=== PATIENT | female | born 1945 | race Caucasian/White ===

== ENCOUNTER 2018-01-03 01:01 | Outpatient (CLI) | payer OTHER, SELFPAY ==
--- NOTE | 2018-01-03 12:54 | DI.RAD_ITS ---
SYMPTOM/DIAGNOSIS: FELL, PAIN, M25.522 LEFT ELBOW: There is a fracture of the olecranon with significant separation extending to the articular surface. There is adjacent posterior soft tissue swelling. The distal humerus and proximal radius appear intact. A joint effusion is seen. IMPRESSION: Olecranon fracture.
== END 2018-01-03 01:21 ==
PROVIDERS: PCP Family Medicine; Visit Provider Family Medicine
DX: M25.522 Pain in left elbow (principal); S52.021A Displaced fracture of olecranon process without intraarticular extension of right ulna, initial encounter for closed fracture; M25.422 Effusion, left elbow; W19.XXXA Unspecified fall, initial encounter
CPT/HCPCS: 73080

== ENCOUNTER → 2018-01-09 10:32 | Outpatient (BNVA) | payer OTHER, SELFPAY | PROVIDERS: PCP Family Medicine; Referring Provider Family Medicine; Visit Provider Orthopaedic Surgery | DX: S52.022A Displaced fracture of olecranon process without intraarticular extension of left ulna, initial encounter for closed fracture (principal); W01.0XXA Fall on same level from slipping, tripping and stumbling without subsequent striking against object, initial encounter | CPT/HCPCS: 99214 ==

== ENCOUNTER 2018-01-12 06:33 | Day surgery (SDC) | payer OTHER, SELFPAY ==
[2018-01-12] MEDS: Bupivacaine LIPOSOME/PF 133 MG/10 ML VIAL IJ (06:45)
[2018-01-12 06:50] VITALS: BP 118/74; PULSE 52; RESP 16; TEMP 36.8; O2SAT 100
[2018-01-12] MEDS: Lactated Ringers 1,000 ML 80 ML IV (07:02)
--- NOTE | 2018-01-12 07:10 | DI.RAD_ITS ---
SYMPTOMS/DIAGNOSIS: DISPLACED OLECRANON FX, LEFT LEFT ELBOW IN THE OR: Fluoroscopy Time: 0.43 sec, 0.4 mGy Fluoroscopy was utilized by Dr. Moreno during the reduction and internal fixation of the olecranon fracture. Alignment appears anatomic. Please refer to the procedure report for complete details.
--- NOTE | 2018-01-12 09:52 | W.PM.DSUDISC ---
Discharge Plan Disposition Patient Disposition: HOME Condition: Good Discharge Details Reason For Visit: ORIF of FX L OLECRANON Attending Provider: Moris Moreno Primary Care Provider: Haydee Olvera Home Meds and New Rx's Prescriptions: New hydrocodone-acetaminophen 5-325 mg tablet 1 tab PO Q6H PRN (Reason: pain) Qty: 14 RF: 0 Continue calcium carb-D3-mag [id number] [id number] ix-uyfu-tn-mg tablet 1 tab PO BID RF: 0 cholecalciferol (vitamin D3) 1,000 unit capsule 1,000 unit PO DAILY RF: 0 ibuprofen [Ibuprofen IB] 200 MG tablet 400 - 600 mg PO PRN RF: 0 Restore Eye Vit 1 tab PO DAILY PRNRF: 0 albuterol sulfate [ProAir HFA] 8.5 GM HFA aerosol inhaler 1 - 2 puff Inhalation Q6H PRN Qty: 1 RF: 12 acyclovir 15 GM ointment 1 gm Topical TID PRNQty: 1 RF: 12 acyclovir 800 mg tablet 800 mg PO 5 times daily PRN (Reason: herpes) Qty: 35 RF: 3 Discharge Instructions Additional Instructions: Sling for comfort. May leave R arm out of sling as much as your discomfort allows. Keep splint and dressings dry and intact until return. Return to 's office on 01/25/18 for follow up. Take ibuprofen 600 mg 3 times/day for next 2 weeks to decrease inflammation and swelling. Take the hydrocodone for breakthrough pain, every 6 hours, if needed. Use your L hand as much as discomfort allows. Cover splint with plastic bag sealed with large rubber band around upper arm to shower. Referrals: Moris Moreno MD [ [facility] STAFF PHYSICIAN] - (f/u on 01/25/18) Equipment/Supplies: Splint Activity:: Activity as Tolerated Remove Dressings/Wound Care:: Do Not Remove Shower/Bathe:: Cover Diet:: As Tolerated Discharge Orders Discharge Orders: Discharge Order (Routine); Ordered 01/12/18 Ordered By: Moris Moreno DS: Diagnosis Discharge Diagnosis (1) Fracture of left olecranon process: Status: Acute
[2018-01-12 10:40] VITALS: BP 113/72; PULSE 56; RESP 16; TEMP 36.6
--- NOTE | 2018-01-12 10:47 | DI.RAD_ITS ---
SYMPTOM/DIAGNOSIS: CHECK REDUCTION FOLLOWING ORIF FX OLECRANON LEFT ELBOW: Four views. The patient is now status post reduction and internal fixation of the left olecranon fracture. The orthopedic hardware appears in good position. The fractures appear anatomic in alignment. The patient's elbow is in a cast.
--- NOTE | 2018-01-12 17:01 | ROE_ITS ---
DATE OF PROCEDURE: January 12, 2018 PREOPERATIVE DIAGNOSIS: Displaced fracture left olecranon process. POSTOPERATIVE DIAGNOSIS: Same. PROCEDURE: Open reduction and internal fixation of displaced fracture of left olecranon process taya infante a cehsoz-ab-yxukq tension band wiring technique. ANESTHESIA: General, Donna Lemon CRNA SURGEON: Moris Moreno M.D. DIGITAL MEDIA MANAGER: Krista Cruz INDICATIONS: This is a 72-year-old white female who slipped and fell on the ice, sustaining a displa joey fracture of her olecranon nineteen days ago. She was heading down to see relatives in [facility] and thought she had just sustained a contusion. So she did not seek any medical attention. When s he came back from [place] after the , she noted that although she could move her elbow fairly well, it was very painful and was weak when she uses it. She is a right-dominant in dividual, so this is her non-dominant extremity. She finally saw her PCP, who obtained x-rays of the elbow last week. The x-rays confirmed the displaced olecranon fracture. I saw the patient on for the first time. I recommended open reduction and internal fixation as the optimum treatment t o alleviate her pain and restore good function to her elbow. The risks and complications of the proc edure were explained to the patient in detail preoperatively. PROCEDURE: The patient was taken to the operating room on 01/12/18. A scalene block was administered to the left upper extremity. This was followed by IV sedation. I applied a proximal tourniquet to the left upper arm. I prepped the left upper extremity from fingers to tourniquet and draped it free in the usual sterile fashion. I then flexed her elbow over her chest on soft goods. I made a longitudinal incision beginning distally over the ulnar crest, curved and then carried proxi chet a distance of about six inches. The incision was curved around the point of the olecranon. Th e incision was carried down to the periosteum. Sharp dissection was used to make skin flaps and refl ect the olecranon bursa tissue medially. The fracture site was entered. I cleaned the fracture site of fracture hematoma using curettes and a small rongeur. I then irrigated the fracture site complet kate. I could see through the fracture the distal humerus articular surface. The articular surface w as undamaged. I then used a large reduction forceps to reduce the fracture. Two parallel 0.062 K-Wires were then p laced through the tip of the olecranon across the fracture and engaging the volar cortex of the ulna. I then made a transverse drill hole distal to the fracture through the crest of the ulna. I passed a 1.6 cable through the drill hole. I then made a jonbph-eu-ophuv and passed the cable deep to the triceps tendon insertion on the tip of the olecranon. The grommet was placed on the cable; the cable was maximally tightened using the cable beach expert and then the grommet was crimped using the crimper tool to secure the tightened cable. As the cable was tightened, the fracture line was seen to compr ess and in fact disappear so that there was an anatomic reduction. The long end of the cables was cu t with a cable cutter. The wound was irrigated with Betadine and saline solution. The wound margins were infiltrated with 0.5% Marcaine with an epinephrine solution. Muscle fascia wh ere the distal drill hole was made in the ulna was then closed over the wire with interrupted #1 Vicr yl suture. I then closed bursal tissue to cover most of the cable with interrupted #1 Vicryl suture material. The wires were bent, cut short and then using a tamp, were tamped through the triceps tend on and sutures were placed through the triceps tendon over the wire to prevent that from backing out. I then actively flexed and extended her elbow; there was no motion to the fracture site. She was a ble to extend her elbow fully and flex it fully passively. The skin edges were then approximated wit h skin gracie. The wound was dressed with Xeroform gauze, sterile gauze 4x4's, ABD pads and wrapped with a Kerlix bandage. She was then placed in a posterior fiberglass splint with the elbow flexed 9 0 degrees. The splint was applied with a 4-inch Dillan bandage. The splint did not extend to the wris t, so her wrist and hand were free to move. The tourniquet was released at this point; there was no breakthrough bleeding to the dressing. The p atient's sedation was reversed without complication. She was discharged to the Day Surgery Unit in g ood condition. A sling was applied to the left arm. She was advised that the sling was for comfort. She may leave her left arm out of the sling as much as discomfort allows. She is to keep the dressings and splint intact and dry until she follows up in my office in two weeks. She is to cover the splint with a karo stic bag sealed with a large rubber band around her upper arm to shower. She is instructed to take i buprofen 600 mg t.i.d. for two weeks to decrease inflammation and swelling. She is given a prescript ion for breakthrough pain of Hydrocodone with APAP 5/325 one tablet every six hours, as needed. She will follow-up in my office in two weeks.
== END 2018-01-12 11:55 | disposition home or self-care (01) ==
PROVIDERS: PCP Family Medicine; Visit Provider Orthopaedic Surgery
PROC: (CPT 24685; principal; 2018-01-12 08:00)
DX: S52.022A Displaced fracture of olecranon process without intraarticular extension of left ulna, initial encounter for closed fracture (principal); W00.0XXA Fall on same level due to ice and snow, initial encounter; G89.18 Other acute postprocedural pain
CPT/HCPCS: 24685; 76942; 73070; 73080; J0690; J1100; J1885; J2250; J2405; L3650

== ENCOUNTER 2018-01-23 01:21 | Outpatient (CLI) | payer OTHER, SELFPAY ==
--- NOTE | 2018-01-23 13:35 | DI.RAD_ITS ---
SYMPTOMS/DIAGNOSIS: FRACTURE, AGE-RELATED OSTEOPOROSIS WITHOUT CURRENT PATHOLOGICAL FRACTURE, M81.0 DEXA SCAN: The DEB image reveals no evidence of compression fracture. For the right forearm, a T score of -2.2 and a Z score of -0.1 are consistent with osteopenia and an increased fracture risk and represent a -3.6% interval decrease in mineralization when compared with the 01/06/2015 exam. For the left hip, a T score of -2.9 and a Z score of -1.4 are consistent with osteoporosis and a high fracture risk and represent a -5.2% interval decrease in mineralization when compared with the prior study of 01/06/2015. For the lumbar spine a T score of -3.0 and a Z score of -0.8 are consistent with osteoporosis and a high fracture risk. The values today would be consistent with an interval increase in mineralization of 10.0% when compared with the prior study of 01/06/2015.
== END 2018-01-23 01:41 ==
PROVIDERS: PCP Family Medicine; Visit Provider Family Medicine
DX: M81.0 Age-related osteoporosis without current pathological fracture (principal); M85.88 Other specified disorders of bone density and structure, other site
CPT/HCPCS: 77080

== ENCOUNTER 2018-01-25 10:15 | Outpatient (CLI) | payer OTHER, SELFPAY ==
--- NOTE | 2018-01-25 10:13 | DI.RAD_ITS ---
SYMPTOM/DIAGNOSIS: F/U ORIF LEFT ELBOW: When compared with the postoperative study of 01/12 there has been no interval change in the position of the olecranon fracture or pin and cerclage wires affixed to the fracture site. No interval change when compared with the prior exam.
== END 2018-01-25 10:35 ==
PROVIDERS: PCP Family Medicine; Visit Provider Orthopaedic Surgery
DX: S52.022D Displaced fracture of olecranon process without intraarticular extension of left ulna, subsequent encounter for closed fracture with routine healing (principal); W19.XXXD Unspecified fall, subsequent encounter
CPT/HCPCS: 73070

== ENCOUNTER 2018-02-22 09:10 | Outpatient (CLI) | payer OTHER, SELFPAY ==
--- NOTE | 2018-02-22 09:54 | DI.RAD_ITS ---
SYMPTOMS/DIAGNOSIS: PAIN LEFT WRIST: Four views. Comparison is 08/07/08. There is again seen a sideplate and screws in the distal left radius. No evidence of hardware failure is seen. No fracture is identified. There is old fracture deformity involving the distal left ulna. The bones are normally mineralized. The soft tissues are unremarkable. IMPRESSION: No acute fracture or dislocation.
== END 2018-02-22 09:30 ==
PROVIDERS: PCP Family Medicine; Visit Provider Orthopaedic Surgery
DX: M25.531 Pain in right wrist (principal); Z87.81 Personal history of (healed) traumatic fracture
CPT/HCPCS: 73110

== ENCOUNTER 2018-02-22 09:53 | Outpatient (CLI) | payer OTHER, SELFPAY ==
--- NOTE | 2018-02-22 09:49 | DI.RAD_ITS ---
SYMPTOMS/DIAGNOSIS: PAIN LEFT ELBOW: Two views. Comparison with prior examination. There is again seen percutaneous pins and wires transfixing the fracture of the left olecranon. The orthopedic hardware and fracture components appear stable. The fracture line is still visualized. No other fracture or dislocation is present.
== END 2018-02-22 10:13 ==
PROVIDERS: PCP Family Medicine; Referring Provider Family Medicine; Visit Provider Orthopaedic Surgery
DX: S52.022D Displaced fracture of olecranon process without intraarticular extension of left ulna, subsequent encounter for closed fracture with routine healing (principal); W01.0XXD Fall on same level from slipping, tripping and stumbling without subsequent striking against object, subsequent encounter
CPT/HCPCS: 73070

== ENCOUNTER 2018-03-06 00:50 | Outpatient (CLI) | payer OTHER, SELFPAY ==
--- NOTE | 2018-03-06 13:13 | DI.MAMMO_ITS ---
SYMPTOM/DIAGNOSIS: SCREENING, Z12.31 MAMMOGRAMS: Mammograms were interpreted according to the usual protocol including computer analysis with CAD system, tomosynthesis and C view imaging. Comparison is made with exams from 9926-7823. The breasts are composed of heterogeneously dense fibroglandular tissue, breast density, Category C. No suspicious masses or suspicious microcalcifications are seen. There has been no significant change. IMPRESSION: Category 1C, negative mammogram. Yearly screening mammography is recommended. [facility] ASSESSMENT OF FINDINGS: Negative. Category 1. Patient will receive a letter notifying them of these results. Bi-RADS category C. The breasts are heterogeneously dense, which may obscure small masses.
== END 2018-03-06 01:10 ==
PROVIDERS: PCP Family Medicine; Visit Provider Family Medicine
DX: Z12.31 Encounter for screening mammogram for malignant neoplasm of breast (principal)
CPT/HCPCS: 77063; 77067

== ENCOUNTER 2018-03-22 12:14 | Outpatient (CLI) | payer OTHER, SELFPAY ==
--- NOTE | 2018-03-22 10:53 | DI.RAD_ITS ---
SYMPTOMS/DIAGNOSIS: FOLLOW UP LEFT ELBOW: Two views were obtained and show pin and wire fixation of the olecranon with no gross interval change in alignment in comparison with examination of 02/22.
== END 2018-03-22 12:34 ==
PROVIDERS: PCP Family Medicine; Referring Provider Family Medicine; Visit Provider Orthopaedic Surgery
DX: S52.022D Displaced fracture of olecranon process without intraarticular extension of left ulna, subsequent encounter for closed fracture with routine healing (principal); X58.XXXD Exposure to other specified factors, subsequent encounter
CPT/HCPCS: 73070; 73080

== ENCOUNTER 2018-04-12 00:53 | Outpatient (CLI) | payer OTHER, SELFPAY ==
--- NOTE | 2018-04-12 09:26 | DI.RAD_ITS ---
SYMPTOM/DIAGNOSIS: RT THUMB ENLARGEMENT AND PAIN, M79.646 RIGHT THUMB: Three views. No priors. There is narrowing at the interphalangeal joint. There is joint space narrowing and periarticular spurring. Well corticated osseous fragments are seen about the interphalangeal joint which appear old. At the metacarpal phalangeal joint, there is mild periarticular spurring present. No acute fracture or dislocation is seen. No radiopaque foreign bodies are seen in the soft tissues. IMPRESSION: Osteoarthritis of the right thumb.
== END 2018-04-12 01:13 ==
PROVIDERS: PCP Family Medicine; Visit Provider Family Medicine
DX: M79.644 Pain in right finger(s) (principal); M19.041 Primary osteoarthritis, right hand
CPT/HCPCS: 73140

== ENCOUNTER 2018-04-12 08:33 | Outpatient (CLI) | payer OTHER, SELFPAY ==
--- NOTE | 2018-04-12 17:37 | W.PREOPHP ---
Date of service: 04/12/18 Time of Service: 08:26 Assessment and Plan (1) Fracture of left olecranon process: Current visit: No Status: Acute painful fixation hardware restricting motion.the anticipated mechanism of proper pin removal is outlined with the simplicity of the procedure stressed. History of Present Illness Chief Complaint: left wrist pain Narrative: Jaylin is a 72-year-old rgaez-ttam-fozwgfka female who injured her left elbow in a slip and fall incident around [facility]. Initially she thought her injury was minor but then began to note painful range of motion prompting her to seek medical evaluation where she was found to have a displaced olecranon fracture. On 01/12/2018 she underwent a tension band wiring procedure to fix her fracture. At follow-up office visits, she began to complain of increased left wrist pain with improved left elbow pain and range of motion. X-ray evaluation of her wrist was negative but x-rays evaluation of her elbow showed 1 of the fixation pins impinging on her radius preventing rotation giving rise to her wrist pain. Removal of the long fixation pin via a simple outpatient procedure was recommended to improve her supination and relieve her wrist pain Pertinent Surgical Information Denies previous medical history of: stroke, TIA, DE, use of sublingual nitroglycerin, GERD, seizures, diabetes, thyroid disease, sleep apnea, liver disease, hepatitis, hematologic disorders Denies previous complications from surgery or anesthesic agents with respect to high fever, prolonged vomiting and difficulty waking up Review of Systems Constitutional Denies fever(s) and Denies headache(s) ENT Denies headache(s), Denies nasal congestion, Denies nasal discharge and Denies sore throat Cardiovascular Denies chest pain, Denies chest pain with activity, Denies palpitations, Denies dyspnea on exertion, Denies orthopnea and Denies paroxysmal nocturnal dyspnea Respiratory Denies cough, Denies excessive phlegm production, Denies pain on inspiration, Denies dyspnea on exertion and Denies wheezing Gastrointestinal Denies abdominal pain, Denies melena, Denies hematochezia, Denies nausea and Denies vomiting Genitourinary Denies hematuria, Denies urinary frequency and Denies dysuria Comments: Denies burning sensation with urination Musculoskeletal Reports as per HPI Neurologic Denies headache(s) Psychiatric Denies anxiety and Denies depression Endocrine Denies palpitations Comments: Denies any unplanned weight changes Allergic/Immunologic Denies wheezing PFSH Medical History Mild intermittent reactive airway disease (Chronic 09/12/16) Raynaud's syndrome (Chronic 07/11/11) Osteoporosis (Chronic 07/11/11) Herpes simplex with unspecified complication (Chronic 07/11/11) Osteoporosis (Chronic) Surgical History Ankle fracture repair (Resolved) History of orthopedic surgery (Resolved) Laparoscopic pyeloplasty for primary UPJ obstruction (Resolved ~2004) PROCEDURES Family History Mother Alcohol abuse Brother Heart disease Social History caregiver/support person: No household members: other details: SELF housing: house highest education level completed: Master's degree current occupational status: retired current occupation: [employer] pets and animals: No sexually active: Yes do you think of yourself as: straight/heterosexual current gender identity: female what type of physical activity do you participate in: walking, other details: big garden- yard and yoga frequency: 3-4 times per week duration: 45-60 minutes/day Smoking and Tabacco status: Current-Occasional tobacco type: cigarettes quit status: not considering quitting alcohol intake: current alcohol intake frequency: a few times a week Alcohol type: beer and hard liquor substance use type: marijuana phil/congregational: Other special phil needs: No What is your relationship status?: refused to answer How often do you talk on the phone with friends or family?: decline to answer How often do you get together with friends or relatives?: decline to answer How often do you attend shinto or scientologist services?: decline to answer Do you belong to any clubs or organized social groups?: decline to answer Panel score (0-1 are the most socially isolated patients): 0 Seatbelt use: always Helmet use: Yes helmet use: always Meds Home Medications Medication Instructions Recorded Confirmed Type ibuprofen [Ibuprofen IB] 400 - 600 mg PO PRN 06/09/15 04/12/18 History Restore Eye Vit 1 tab PO DAILY PRN 12/24/15 04/12/18 History albuterol sulfate [ProAir HFA] 1 - 2 puff INHALATION Q6H PRN #1 05/03/16 04/12/18 History inhaler acyclovir 1 gm TOPICAL TID PRN #1 tube 10/24/16 04/12/18 History acyclovir 800 mg tablet 800 mg PO 5 times daily PRN #35 10/30/17 04/12/18 Rx tab-cap calcium carb-vit [id number]-[id number]-[id number] 1 tab PO BID tab 01/09/18 04/12/18 History 333 mg-200 unit-133 mg-5 mg tablet cholecalciferol (vitamin D3) 1,000 1,000 unit PO DAILY 01/09/18 04/12/18 History unit capsule Advanced Bone Fomula 1 tab PO DAILY 03/21/18 04/11/18 History Stronium support II 1 tab PO DAILY 03/21/18 04/12/18 History alendronate 70 mg tablet 70 mg PO QWEEK 03/22/18 04/12/18 History Allergies Allergy/AdvReac Type Severity Reaction Status Date / Time No Known Allergies Allergy Unverified 04/11/18 09:52 Exam Const General: cooperative HENMT Throat: posterior oropharynx normal Eyes General: appearance normal, both eyes and all related structures Conjunctivae: conjunctivae normal Sclera: sclerae normal Neck Neck: no JVD Carotids: normal carotid upstroke and no bruits Resp Effort & Inspection: normal respiratory effort and able to speak in complete sentences Auscultation: clear to auscultation bilaterally, no rales, no rhonchi and no wheezes Cardio Rate: regular rate Heart Sounds: S1 normal, S2 normal and no murmurs Bruits: no abdominal aortic bruits Pulses: normal peripheral pulses GI Palpation: soft and no hepatosplenomegaly Auscultation: normal bowel sounds General: No CVA tenderness Extrem General: normal to inspection Other: left elbow exam shows well healed olecranon incision with palpable fixation hardware secondary to patients thin body habitus. elbow rom shows full extension,flexion and pronation with supination restricted to 75-80 degrees Results Imaging Imaging Studies: xays of the patients left elbow show healing of her olecranon fracture with single fixation pin impinging on proximal radius
--- NOTE | 2018-04-12 17:44 | HPE_ITS ---
Date of service: 04/12/18 Time of Service: 08:26 Assessment and Plan (1) Fracture of left olecranon process: Current visit: No Status: Acute painful fixation hardware restricting motion.the anticipated mechanism of proper pin removal is outlined with the simplicity of the procedure stressed. History of Present Illness Chief Complaint: left wrist pain Narrative: Jaylin is a 72-year-old yruqy-ngvi-lypvlfra female who injured her left elbow in a slip and fall incident around [facility]. Initially she thought her injury was minor but then began to note painful range of motion prompting her to seek medical evaluation where she was found to have a displaced olecranon fracture. On 01/12/2018 she underwent a tension band wiring procedure to fix her fracture. At follow-up office visits, she began to complain of increased left wrist pain with improved left elbow pain and range of motion. X-ray evaluation of her wrist was negative but x-rays evaluation of her elbow showed 1 of the fixation pins impinging on her radius preventing rotation giving rise to her wrist pain. Removal of the long fixation pin via a simple outpatient procedure was recommended to improve her supination and relieve her wrist pain Pertinent Surgical Information Denies previous medical history of: stroke, TIA, RI, use of sublingual nitroglycerin, GERD, seizures, diabetes, thyroid disease, sleep apnea, liver disease, hepatitis, hematologic disorders Denies previous complications from surgery or anesthesic agents with respect to high fever, prolonged vomiting and difficulty waking up Review of Systems Constitutional Denies fever(s) and Denies headache(s) ENT Denies headache(s), Denies nasal congestion, Denies nasal discharge and Denies sore throat Cardiovascular Denies chest pain, Denies chest pain with activity, Denies palpitations, Denies dyspnea on exertion, Denies orthopnea and Denies paroxysmal nocturnal dyspnea Respiratory Denies cough, Denies excessive phlegm production, Denies pain on inspiration, Denies dyspnea on exertion and Denies wheezing Gastrointestinal Denies abdominal pain, Denies melena, Denies hematochezia, Denies nausea and Denies vomiting Genitourinary Denies hematuria, Denies urinary frequency and Denies dysuria Comments: Denies burning sensation with urination Musculoskeletal Reports as per HPI Neurologic Denies headache(s) Psychiatric Denies anxiety and Denies depression Endocrine Denies palpitations Comments: Denies any unplanned weight changes Allergic/Immunologic Denies wheezing PFSH Medical History Mild intermittent reactive airway disease (Chronic 09/12/16) Raynaud's syndrome (Chronic 07/11/11) Osteoporosis (Chronic 07/11/11) Herpes simplex with unspecified complication (Chronic 07/11/11) Osteoporosis (Chronic) Surgical History Ankle fracture repair (Resolved) History of orthopedic surgery (Resolved) Laparoscopic pyeloplasty for primary UPJ obstruction (Resolved ~2004) PROCEDURES Family History Mother Alcohol abuse Brother Heart disease Social History caregiver/support person: No household members: other details: SELF housing: house highest education level completed: Master's degree current occupational status: retired current occupation: [employer] pets and animals: No sexually active: Yes do you think of yourself as: straight/heterosexual current gender identity: female what type of physical activity do you participate in: walking, other details: big garden- yard and yoga frequency: 3-4 times per week duration: 45-60 minutes/day Smoking and Tabacco status: Current-Occasional tobacco type: cigarettes quit status: not considering quitting alcohol intake: current alcohol intake frequency: a few times a week Alcohol type: beer and hard liquor substance use type: marijuana phil/yarsanism: Other special phil needs: No What is your relationship status?: refused to answer How often do you talk on the phone with friends or family?: decline to answer How often do you get together with friends or relatives?: decline to answer How often do you attend mormon or taoist services?: decline to answer Do you belong to any clubs or organized social groups?: decline to answer Panel score (0-1 are the most socially isolated patients): 0 Seatbelt use: always Helmet use: Yes helmet use: always Meds Home Medications Medication Instructions Recorded Confirmed Type ibuprofen [Ibuprofen IB] 400 - 600 mg PO PRN 06/09/15 04/12/18 History Restore Eye Vit 1 tab PO DAILY PRN 12/24/15 04/12/18 History albuterol sulfate [ProAir HFA] 1 - 2 puff INHALATION Q6H PRN #1 05/03/16 04/12/18 History inhaler acyclovir 1 gm TOPICAL TID PRN #1 tube 10/24/16 04/12/18 History acyclovir 800 mg tablet 800 mg PO 5 times daily PRN #35 10/30/17 04/12/18 Rx tab-cap calcium carb-vit T4-agifsbchf-igaf 1 tab PO BID tab 01/09/18 04/12/18 History 333 mg-200 unit-133 mg-5 mg tablet cholecalciferol (vitamin D3) 1,000 1,000 unit PO DAILY 01/09/18 04/12/18 History unit capsule Advanced Bone Fomula 1 tab PO DAILY 03/21/18 04/11/18 History Stronium support II 1 tab PO DAILY 03/21/18 04/12/18 History alendronate 70 mg tablet 70 mg PO QWEEK 03/22/18 04/12/18 History Allergies Allergy/AdvReac Type Severity Reaction Status Date / Time No Known Allergies Allergy Unverified 04/11/18 09:52 Exam Const General: cooperative HENMT Throat: posterior oropharynx normal Eyes General: appearance normal, both eyes and all related structures Conjunctivae: conjunctivae normal Sclera: sclerae normal Neck Neck: no JVD Carotids: normal carotid upstroke and no bruits Resp Effort & Inspection: normal respiratory effort and able to speak in complete sentences Auscultation: clear to auscultation bilaterally, no rales, no rhonchi and no wheezes Cardio Rate: regular rate Heart Sounds: S1 normal, S2 normal and no murmurs Bruits: no abdominal aortic bruits Pulses: normal peripheral pulses GI Palpation: soft and no hepatosplenomegaly Auscultation: normal bowel sounds General: No CVA tenderness Extrem General: normal to inspection Other: left elbow exam shows well healed olecranon incision with palpable fixation hardware secondary to patients thin body habitus. elbow rom shows full extension,flexion and pronation with supination restricted to 75-80 degrees Results Imaging Imaging Studies: xays of the patients left elbow show healing of her olecranon fracture with single fixation pin impinging on proximal radius
== END 2018-04-12 08:53 ==
PROVIDERS: PCP Family Medicine; Visit Provider Orthopaedic Surgery
DX: S52.022D Displaced fracture of olecranon process without intraarticular extension of left ulna, subsequent encounter for closed fracture with routine healing (principal); Z01.818 Encounter for other preprocedural examination; W00.0XXD Fall on same level due to ice and snow, subsequent encounter

== ENCOUNTER 2018-04-16 09:58 | Day surgery (SDC) | payer OTHER, SELFPAY ==
[2018-04-12 09:05] VITALS: BP 129/75; PULSE 54; RESP 16; TEMP 36.6; O2SAT 97
[2018-04-16 10:42] VITALS: BP 131/60; PULSE 66; RESP 16; TEMP 36.1; O2SAT 98
[2018-04-16] MEDS: Lactated Ringers 1,000 ML 80 ML IV ×2 (11:15→16:05)
--- NOTE | 2018-04-16 13:57 | DI.RAD_ITS ---
SYMPTOMS/DIAGNOSIS: PAINFUL HARDWARE LEFT ELBOW IN THE OR: Fluoroscopy Time: 14.9 sec Comparison is 03/22/18. Fluoroscopy was utilized by Dr. Moreno in the operating room. The two percutaneous pins have been removed from the olecranon. Please refer to the procedure report for complete details.
--- NOTE | 2018-04-16 15:49 | W.PM.DSUDISC ---
Discharge Plan Disposition Patient Disposition: HOME Condition: Good Discharge Details Reason For Visit: Remove painful wires Marylou olecrmainorn Attending Provider: Moris Moreno Primary Care Provider: Haydee Olvera Home Meds and New Rx's Prescriptions: New hydrocodone-acetaminophen 5-325 mg tablet 1 tab PO Q6H PRN (Reason: pain) Qty: 14 RF: 0 Continued calcium carb-D3-mag [id number] [id number] hm-lyag-nd-mg tablet 1 tab PO BID RF: 0 cholecalciferol (vitamin D3) 1,000 unit capsule 1,000 unit PO DAILY RF: 0 alendronate [Fosamax] 70 mg tablet 70 mg PO QWEEK RF: 0 ibuprofen [Ibuprofen IB] 200 MG tablet 400 - 600 mg PO PRN RF: 0 Restore Eye Vit 1 tab PO DAILY PRNRF: 0 albuterol sulfate [ProAir HFA] 8.5 GM HFA aerosol inhaler 1 - 2 puff Inhalation Q6H PRN Qty: 1 RF: 12 acyclovir 15 GM ointment 1 gm Topical TID PRNQty: 1 RF: 12 acyclovir 800 mg tablet 800 mg PO 5 times daily PRN (Reason: herpes) Qty: 35 RF: 3 Advanced Bone Fomula 40 mg tablet 1 tab PO DAILY RF: 0 Stronium support II 682 mg tablet 1 tab PO DAILY RF: 0 Discharge Instructions Additional Instructions: Sling for comfort. Take L arm out of sling and move L elbow as much as your discomfort allows. Discontinue sling as soon as you can tolerate it. May remove dressings, shower, and get incision wet after 72 hours. Loosen maile wraps if your L hand swells. Take ibuprofen 600 mg every 6 hours for mild pain. Use hydrocodone for breakthru pain. Follow up with in 2 weeks. May use L hand as much as discomfort allows. Referrals: Moris Moreno MD [ [facility] STAFF PHYSICIAN] - (f/u in 2 weeks.) Equipment/Supplies: Sling Activity:: Activity as Tolerated Remove Dressings/Wound Care:: 72 hours Shower/Bathe:: 72 hours Diet:: As Tolerated Discharge Orders Discharge Orders: Discharge Order (Routine); Ordered 04/16/18 Ordered By: Moris Moreno DS: Diagnosis Discharge Diagnosis (1) Complication involving orthopedic internal fixation device: Status: Acute
[2018-04-16 15:51] VITALS: BP 108/64; PULSE 54; RESP 17; TEMP 36.8; O2SAT 99
[2018-04-16 15:55] VITALS: BP 86/47; PULSE 54; RESP 15; TEMP 36.8; O2SAT 99
[2018-04-16 16:00] VITALS: BP 104/52; PULSE 54; RESP 15; TEMP 36.8; O2SAT 99
[2018-04-16 16:15] VITALS: BP 100/54; PULSE 55; RESP 13; TEMP 36.6; O2SAT 97
[2018-04-16 17:00] VITALS: BP 94/58; PULSE 51; RESP 16; TEMP 36.2; O2SAT 98
[2018-04-16] MEDS: oxyCODONE-CR 10 MG TABCR PO (17:05)
--- NOTE | 2018-04-17 18:55 | ROE_ITS ---
DATE OF PROCEDURE: April 16, 2018 PREOPERATIVE DIAGNOSIS: Painful pins left olecranon. POSTOPERATIVE DIAGNOSIS: Painful pins left olecranon. PROCEDURE: Removal of painful pins from the left olecranon. SURGEON: Moris Moreno M.D. CANS VACUUM TESTER: Eloisa Carter PA-C ANESTHESIA: General. INDICATIONS: This is a 72-year-old white female who approximately four months ago underwent ORIF of a displaced fracture of the left olecranon using the tension band wiring technique. The fracture has healed uneventfully. The patient has continued, however, to have restriction of supination and pain with supination due to impingement of one of the pins on the radial tuberosity. This was noted fair ly shortly postoperatively. It was decided to wait to let the fracture heal before removing the pins . I felt that she would regain her full rotation of her forearm once the impinging pin could be ronaldo fozia. Her fracture is now healed and pin removal is recommended. The risks and complications of the procedure were explained to the patient in detail preoperatively. PROCEDURE: The patient was taken to the Operating Room on 04/16/18. She was placed supine on the ope rating table and a general anesthetic was administered. The left elbow was prepped and draped free i n the usual sterile fashion. The left elbow was then flexed over her chest on soft goods. An incisi on was made in line with the old incision down to the triceps tendon. Longitudinal incisions were ma de in the triceps tendon. I actually had to make three parallel incisions in order to find the ends of the pins. The mssscj-qg-xiaws cable was easily encountered. After multiple attempts however, I w as finally able to expose the heads of the K-wires and the two K-wires were removed. Following remov al of the K-wires, full pronation and supination of her left elbow was restored. The wound margins were infiltrated with 0.5% Marcaine with epinephrine solution. The longitudinal in cisions in the triceps tendon were repaired with interrupted voopcr-nb-ggyop sutures of #1 Vicryl sut ure material. The skin and subcu were approximated with horizontal mattress sutures of #3-0 nylon marshall ture material. The wounds were dressed with Xeroform gauze, sterile gauze 4x4s, an ABD pad, wrapped with a Kerlix bandage, and then wrapped with a 4-inch Dillan bandage for a light pressure dressing. The tourniquet that had been inflated for the procedure was deflated at the conclusion of the procedure with no breakthrough bleeding to the dressings. The patient's anesthesia was reversed without compli cation. She was discharged to the Recovery Room in good condition. The patient was discharged home from the Day Surgery Unit when fully recovered from her general anest hesia. She was given instructions to use a sling for comfort. She may discontinue the sling as soon as discomfort allows. She may remove her dressings, shower and get her incisions wet after 72 hours . She may use her left arm as much as discomfort allows. She can leave the incision uncovered when it is dry and sealed. She is told to take ibuprofen or Tylenol for mild pain. She is given a prescr iption for breakthrough pain of hydrocodone/APAP 5 mg/325 mg, 1 tablet every 6 hours as needed. She will follow up in Dr. Moreno's office in two weeks.
== END 2018-04-16 17:47 | disposition home or self-care (01) ==
PROVIDERS: PCP Family Medicine; Visit Provider Orthopaedic Surgery
PROC: (CPT 20680; principal; 2018-04-16 11:30)
DX: T84.84XA Pain due to internal orthopedic prosthetic devices, implants and grafts, initial encounter (principal); T84.89XA Other specified complication of internal orthopedic prosthetic devices, implants and grafts, initial encounter; M25.522 Pain in left elbow
CPT/HCPCS: 20680; 73070; J1100; J1885; J2405; L3650

== ENCOUNTER → 2018-05-01 09:59 | Outpatient (BNVA) | payer OTHER, SELFPAY | PROVIDERS: PCP Family Medicine; Referring Provider Family Medicine; Visit Provider Orthopaedic Surgery | DX: Z47.89 Encounter for other orthopedic aftercare (principal); T84.89XA Other specified complication of internal orthopedic prosthetic devices, implants and grafts, initial encounter ==

== ENCOUNTER 2018-11-07 08:12 | Outpatient (CLI) | payer OTHER, SELFPAY ==
--- NOTE | 2018-11-07 12:30 | DI.RAD_ITS ---
EXAM: XR THUMB RT INDICATION: Thumb pain, M79.646, ? infection in thumb. COMPARISON: No exams were available for comparison TECHNIQUE: 2D digital imaging was performed. FINDINGS: No acute fracture or dislocation is present. Moderately severe degenerative changes are present at t he interphalangeal joint of the thumb. No erosive or destructive changes are seen to suggest osteomy elitis. The soft tissues are unremarkable. IMPRESSION: No radiographic findings to suggest acute osteomyelitis. If there is continued concern, then MRI or bone scan may be considered for further evaluation.
[2018-11-07 12:56] LABS: Abs Immature Grans 0.01 k/cumm (0.0-0.09); Absolute Basophil Count 0.03 k/cumm (0.0-0.2); Absolute Eosinophil Count 0.06 k/cumm (0.0-0.7); Absolute Lymphocyte Count 1.64 k/cumm (1.2-3.4); Absolute Monocyte Count 0.45 k/cumm (0.11-0.7); Absolute Neutrophil Count 3.48 k/cumm (1.2-6.7); Basophils % 0.5; Eosinophils % 1.1; HCT 36.9 % (36.0-46.0); HGB 11.8 g/dL (12.0-15.5); Immature Grans % 0.2; Lymphocytes % 28.9; Mean Corpuscular Hemoglobin 29.4 pg (27.0-33.0); Mean Corpuscular Volume 91.8 fL (80-95); Mean Platelet Volume 10.3 fL (8.0-11.0); Monocytes % 7.9; Neutrophils % 61.4; Platelet Count 193 x1000/uL (130-400); RBC 4.02 m/cumm (4.00-5.20); RBC Distribution Width 13.6 % (11.7-14.6); White Blood Cell Count 5.67 k/cumm (4.4-10.8)
[2018-11-07 13:27] LABS: Uric Acid 3.9 mg/dL (2.6-6.0)
[2018-11-07 13:36] LABS: C-Reactive Protein < 0.05 mg/dL (0.0-0.3)
== END 2018-11-07 08:32 ==
PROVIDERS: PCP Family Medicine; Visit Provider Family Medicine
DX: M79.644 Pain in right finger(s) (principal); M19.041 Primary osteoarthritis, right hand
CPT/HCPCS: 36415; 73140; 84550; 85025; 86140

== ENCOUNTER 2019-10-22 00:38 | Outpatient (CLI) | payer OTHER, SELFPAY ==
--- NOTE | 2019-10-22 11:14 | DI.MAMMO_ITS ---
EXAM: MAMMO SCREENING CLINICAL HISTORY: screening,Z12.39 TECHNIQUE: Mammograms were interpreted according to the usual protocol including computer analysis w [employer] CAD system, tomosynthesis and C-view imaging. COMPARISON: FINDINGS: The breasts are heterogeneously dense. No dominant mass or clumped microcalcification is identified in either breast. The current examination is compared with previous examinations including February 07 and there has been no gross interval change in appearance in comparison with the prior studies. IMPRESSION: No specific evidence of malignancy at this time. Routine screening examinations are suggested at ye isai intervals in this age group according to the ACS ACR guidelines. BI-RADS Category 1 - Negative Breast Density - Category C - Heterogeneously dense
== END 2019-10-22 00:58 ==
PROVIDERS: PCP Family Medicine; Visit Provider Family Medicine
DX: Z12.31 Encounter for screening mammogram for malignant neoplasm of breast (principal)
CPT/HCPCS: 77063; 77067

== ENCOUNTER 2020-02-05 03:18 | Outpatient (CLI) | payer OTHER, SELFPAY ==
[2020-02-06 03:54] LABS: COVID-19 RT-PCR UVMMC Result Negative (Negative)
== END 2020-02-05 03:38 ==
PROVIDERS: PCP Family Medicine; Visit Provider Family Medicine
DX: Z20.828 Contact with and (suspected) exposure to other viral communicable diseases (principal)
CPT/HCPCS: U0003

== ENCOUNTER 2020-05-06 02:21 | Outpatient (CLI) | payer OTHER, SELFPAY ==
--- NOTE | 2020-05-06 08:15 | DI.DEXA_ITS ---
EXAM: XR DEXA BONE DENSITY W/WO DEB CLINICAL HISTORY: osteoporosis,M85.88,OSTEOPENIA TECHNIQUE: Routine DEXA evaluation of the lumbar spine, hip, or forearm. COMPARISON: Prior DEXA scan January 2018 FINDINGS: Performed on a [employer] unit. Lateral image: There are compression fractures at the thoracic-lumbar junction Lumbar Spine total T-score: -2.1. Prior January 2018 reading was -3.0. Hip total T-score:-3.0. Prior January 2018 reading was -2.9. Independent reading at the level of the femoral neck yields a T-score of -2.8 Forearm total T-score: -2.2 IMPRESSION: Bone mineral density measures in the osteoporosis range. Fracture risk is high. Note: Any spine fracture indicates 5x risk for subsequent spine fracture and 2x risk for subsequent h ip fracture. World Health Organization criteria for BMD interpretation classify patients: Normal...... T- Score at or above -1.0 Osteopenic... T- Score between -1.0 and -2.5 Osteoporosis... T-Score at or below -2.5
== END 2020-05-06 02:41 ==
PROVIDERS: PCP Family Medicine; Visit Provider Family Medicine
DX: M81.0 Age-related osteoporosis without current pathological fracture (principal); M85.88 Other specified disorders of bone density and structure, other site
CPT/HCPCS: 77080

== ENCOUNTER 2020-07-01 02:46 | Outpatient (CLI) | payer OTHER, SELFPAY ==
--- NOTE | 2020-07-01 08:30 | DI.RAD_ITS ---
Exam(s) XR HUMERUS RT EXAM: XR HUMERUS RT CLINICAL HISTORY: r arm pain. Severe osteoporosis,m79.601. TECHNIQUE: 2D digital imaging was performed. COMPARISON: CR XR DEXA BONE DENSITY W/WO DEB from 05/06/2020 FINDINGS: No evidence of fracture nor dislocation. No osseous lesions. Degenerative cyst is noted in the basilia ral head. IMPRESSION: DATA REPOSITORY: RADIATION DOSE DELIVERED:
== END 2020-07-01 03:06 ==
PROVIDERS: PCP Family Medicine; Visit Provider Family Medicine
DX: M25.511 Pain in right shoulder (principal); M79.601 Pain in right arm; M81.0 Age-related osteoporosis without current pathological fracture
CPT/HCPCS: 73060

== ENCOUNTER 2021-06-07 09:29 | Outpatient (CLI) | payer OTHER, SELFPAY ==
--- NOTE | 2021-06-07 09:30 | RT.EKG_ITS ---
APPROVED REPORT Exam: Resting ECG Reason for Exam: Pre-op cataract surgery Patient Location: O HR:43 bpm ECG Measurements Heart Rate 43 AXIS WY 173 P 75 QRSd 90 QRS 44 QT 477 T 35 QTc 404 Conclusion Sinus bradycardia...rate< 60
== END 2021-06-07 09:30 | disposition home or self-care (01) ==
PROVIDERS: PCP Family Medicine; Visit Provider Family Medicine
DX: Z01.818 Encounter for other preprocedural examination (principal); M25.562 Pain in left knee
CPT/HCPCS: 93010

== ENCOUNTER 2021-06-14 00:47 | Outpatient (CLI) | payer MEDICARE, SELFPAY ==
--- NOTE | 2021-06-14 08:00 | DI.RAD_ITS ---
Exam(s) XR KNEE LT 3V AP,LAT,XU EXAM: XR KNEE LT 3V AP,LAT,XU CLINICAL HISTORY: left knee pain,M25.562. TECHNIQUE: 2D digital imaging was performed. Three views. COMPARISON: No exams were available for comparison FINDINGS: BONES: No acute fracture is present. No bony destructive lesion is seen. JOINTS: The knee is normally aligned. No joint effusion is seen. Narrowing patellofemoral joint. Minimal periarticular spurring SOFT TISSUE: Normal. IMPRESSION: Degenerative changes patellofemoral joint. DATA REPOSITORY: RADIATION DOSE DELIVERED:
--- NOTE | 2021-06-14 08:00 | DI.MAMMO_ITS ---
Exam(s) MAMMO SCREENING EXAM: MAMMO SCREENING CLINICAL HISTORY: screening,Z12,39 TECHNIQUE: Mammograms were interpreted according to the usual protocol including computer analysis w [employer] CAD system, tomosynthesis and C-view imaging. COMPARISON: 2011 through 2019 FINDINGS: The breasts are composed of heterogeneously dense fibroglandular densities, Breast Density category C . No suspicious masses or suspicious microcalcifications are seen. No skin thickening or abnormal axillary lymph nodes are seen. There has been no significant change from prior exams. IMPRESSION: BI-RADS Category 1, Negative mammogram. Yearly screening mammography is recommended. Breast Density Category C, heterogeneously Dense. The mammogram demonstrates the patient's breast tissue is dense. Dense breast tissue is very common a nd is not abnormal but dense breast tissue can make it harder to find cancer on a mammogram. Also, de nse breast tissue may increase breast cancer risk. This information about the result of the mammogram report was provided to the patient to raise their awareness. Use this report when you speak with the patient about their risks for breast cancer, which includes their family history. At that time, you may recommend additional screening tests (Ultrasound or MRI) as they might be useful based on their r isk. A negative radiographic report should not delay biopsy if a dominant or clinically suspicious mass is present. Up to ten percent of cancers are not identified on mammography. A negative report may reinforce clinical impression. Adenosis and dense breasts may obscure an underlying neoplasm. False positive reports average 6 to 10%.
== END 2021-06-14 01:07 ==
PROVIDERS: PCP Family Medicine; Visit Provider Family Medicine
DX: Z12.31 Encounter for screening mammogram for malignant neoplasm of breast (principal); M25.562 Pain in left knee; M17.12 Unilateral primary osteoarthritis, left knee
CPT/HCPCS: 73562; 77063; 77067

== ENCOUNTER 2022-08-10 01:59 | Outpatient (CLI) | payer MEDICARE, SELFPAY ==
--- NOTE | 2022-08-10 07:30 | DI.MAMMO_ITS ---
Exam(s) MAMMO SCREENING EXAM: MAMMO SCREENING CLINICAL HISTORY: screening, Z12.39 TECHNIQUE: Mammograms were interpreted according to the usual protocol including computer analysis w [employer] CAD system, tomosynthesis and C-view imaging. COMPARISON: 2015 through 2021 FINDINGS: The breasts are composed of heterogeneously dense fibroglandular densities, Breast Density category C . No suspicious masses or suspicious microcalcifications are seen. No skin thickening or abnormal axillary lymph nodes are seen. There has been no significant change from prior exams. IMPRESSION: BI-RADS Category 1, Negative mammogram. Yearly screening mammography is recommended. Breast Density Category C, heterogeneously Dense. The mammogram demonstrates the patient's breast tissue is dense. Dense breast tissue is very common a nd is not abnormal but dense breast tissue can make it harder to find cancer on a mammogram. Also, de nse breast tissue may increase breast cancer risk. This information about the result of the mammogram report was provided to the patient to raise their awareness. Use this report when you speak with the patient about their risks for breast cancer, which includes their family history. At that time, you may recommend additional screening tests (Ultrasound or MRI) as they might be useful based on their r isk. A negative radiographic report should not delay biopsy if a dominant or clinically suspicious mass is present. Up to ten percent of cancers are not identified on mammography. A negative report may reinforce clinical impression. Adenosis and dense breasts may obscure an underlying neoplasm. False positive reports average 6 to 10%.
== END 2022-08-10 02:19 ==
LOC: DI 01:59
PROVIDERS: PCP Family Medicine; Visit Provider Family Medicine
DX: Z12.31 Encounter for screening mammogram for malignant neoplasm of breast (principal)
CPT/HCPCS: 77063; 77067

== ENCOUNTER 2022-09-05 01:19 | Outpatient (CLI) | payer MEDICARE, SELFPAY ==
[2022-09-05] MEDS: Barium Sulfate 2% W/V-Berry Smoothie 450 ML BTL 900 ML PO (12:23)
[2022-09-05 12:47] LABS: CREATININE 0.7 mg/dL (0.55-1.02); Estimated GFR 90.14 (mL/min/1.73m2)
[2022-09-05] MEDS: Omnipaque 350 MG/ML 100 ML BTL IJ (14:19)
[2022-09-05] MEDS: Normal Saline - Diluent 50 ML VIAL IJ (14:19)
--- NOTE | 2022-09-05 14:35 | DI.CT_ITS ---
Exam(s) CT ABDOMEN PELVIS W EXAM: CT ABDOMEN PELVIS W CLINICAL HISTORY: positive cologuard; pt cannot do the prep for colo. TECHNIQUE: Imaging Protocol: Axial computed tomography images with coronal and sagittal reformatted images were created and reviewed CONTRAST MATERIAL: Intravenous: Omnipaque 350 Contrast volume:100 ml Oral: yes / no COMPARISON: None FINDINGS: ABDOMEN: Lung Bases: Normal where visualized. Liver: Normal density. No measurable mass. Gallbladder and biliary tract: No radiodense calculus or dilation. Pancreas: Normal density, no abnormal calcifications or inflammatory process. Spleen: Normal size. Innumerable low-density lesions in the spleen. Kidneys: Right kidney appears mildly atrophic. There is moderate dilatation of the right renal pelvi s and intrarenal collecting system. The ureter does not appear dilated. The findings could be secon beverly to chronic ureteropelvic junction obstruction. No radiodense stones or obstructive uropathy. No suspicious masses seen. Adrenal glands: No masses seen. Abdominal Aorta: Abdominal portion non-dilated. Soft tissues: Unremarkable. PELVIS: Bladder: No gross wall thickening. No calculi.No focal mass. Bowel: The oral contrast extends to the level of the cecum and ascending colon. The transverse colon through rectum do not show contrast, limiting the evaluation for a colonic mass. The exam is also l imited by lack of intra-abdominal fat. There is a large quantity of stool seen from the cecum throug h mid descending colon. No mass is identified. The cecum lies low in the pelvis. The appendix is n ormal. No small bowel dilatation. Peritoneal cavity: No ascites, collection or mesenteric inflammatory response. Bones: Moderate compression fracture of T12 and L1. Mild compression fracture of L5. No destructive bony lesion seen. Reproductive organs: Within normal limits. Lymph nodes: Unremarkable. Impression: No colonic mass is identified. There is a large quantity of stool from the cecum through mid descend ing colon. Multiple splenic lesions. The findings could be infectious, inflammatory or metastatic. RADIATION DOSE DELIVERED: 658.09mGy.cm Total DLP DATA REPOSITORY: All CT scans at this facility are submitted to the National Radiology Data Registry (NRDR) Dose Index Registry (DIR) with the [employer] (ACR). RADIATION OPTIMIZATION: All CT scans at this facility use at least one of these dose optimization te chniques: automated exposure control; mA and/or kV adjustment per patient size (includes targeted exa ms where dose is matched to clinical indication); or iterative reconstruction.
== END 2022-09-05 01:39 ==
LOC: DI 01:19
PROVIDERS: PCP Family Medicine; Visit Provider Family Medicine
DX: K59.00 Constipation, unspecified (principal); S22.080A Wedge compression fracture of T11-T12 vertebra, initial encounter for closed fracture; D73.89 Other diseases of spleen; X58.XXXA Exposure to other specified factors, initial encounter
CPT/HCPCS: 74177; 82565; J3490

== ENCOUNTER 2022-09-12 02:50 | Outpatient (CLI) | payer MEDICARE, SELFPAY ==
[2022-09-12 08:17] LABS: Abs Immature Grans 0.02 10^3/uL (0.0-0.06); Absolute Basophil Count 0.05 10^3/uL (0.0-0.2); Absolute Eosinophil Count 0.14 10^3/uL (0.0-0.7); Absolute Neutrophil Count 2.82 10^3/uL (1.2-6.7); Basophils % 0.8; Eosinophils % 2.4; HCT 38.7 % (36.0-46.0); HGB 12.9 g/dL (11.2-15.7); Immature Grans % 0.3; Lymphocytes % 38.8; MCH 29.9 pg (27.0-33.0); MCHC 33.3 % (32.0-36.0); MCV 90 fL (80-95); MPV 9.9 fL (8.0-11.0); Monocytes % 10.1; Neutrophils % 47.6; Platelet Count 199 10^3/uL (130-400); RBC 4.32 10^6/uL (3.93-5.22); RDW 13.2 % (11.7-14.6); RDW-SD 42.8 fL; WBC 5.93 10^3/uL (4.4-10.8)
[2022-09-12 09:07] LABS: ALT 24 U/L (14-59); AST 18 U/L (15-37); Albumin 4.2 g/dL (3.4-5.0); Alkaline Phosphatase 48 U/L (46-116); Anion Gap 5.9 mmol/L (3-11); BUN 13 mg/dL (7-18); Bilirubin, Total 0.5 mg/dL (0.2-1.0); CO2 31.1 mmol/L (21.0-32.0); CREATININE 0.8 mg/dL (0.55-1.02); Calcium 9.6 mg/dL (8.5-10.1); Chloride 102 mmol/L (98-107); Estimated GFR 76.79 (mL/min/1.73m2); Glucose 73 mg/dL (74-106); Potassium 3.9 mmol/L (3.5-5.1); Sodium 139 mmol/L (136-145); Total Protein 7.3 g/dL (6.4-8.2)
== END 2022-09-12 02:51 | disposition home or self-care (01) ==
PROVIDERS: PCP Family Medicine; Visit Provider Family Medicine
DX: D73.89 Other diseases of spleen (principal)
CPT/HCPCS: 36415; 80053; 85025

== ENCOUNTER 2023-08-21 03:47 | Outpatient (CLI) | payer MEDICARE, SELFPAY ==
[2023-08-22 09:13] LABS: Lyme Ab w Rflx to Lyme Confirm Positive (Negative)
[2023-08-22 09:32] LABS: Hepatitis C Ab w Rflx HCV PCR Negative (Negative)
[2023-08-22 10:52] LABS: Lyme IgG Ab Positive (Negative); Lyme IgM Ab Positive (Negative)
[2023-08-23 21:12] LABS: B. miyamotoi PCR Negative (Negative); Babesia divergens/MO-1 Negative (Negative); Babesia duncani Negative (Negative); Babesia microti Negative (Negative); Ehrlichia chaffeensis Negative (Negative); Ehrlichia ewingii/canis Negative (Negative); Ehrlichia muris eauclairensis Negative (Negative)
[2023-08-24 08:25] LABS: Anaplasma phagocytophilum Positive (Negative)
== END 2023-08-21 03:48 | disposition home or self-care (01) ==
LOC: LBO 03:47
PROVIDERS: PCP Family Medicine; Visit Provider Family Medicine
DX: Z11.59 Encounter for screening for other viral diseases (principal); W57.XXXA Bitten or stung by nonvenomous insect and other nonvenomous arthropods, initial encounter
CPT/HCPCS: 36415; 86617; 86803; 87798; 86618

== ENCOUNTER → 2023-08-24 11:36 | Outpatient (CLI) | payer MEDICARE, SELFPAY ==
--- NOTE | 2023-08-24 12:20 | DI.US_ITS ---
Exam(s) US RENAL EXAM: US RENAL CLINICAL HISTORY: R10.9 Abd / flank pain TECHNIQUE: Ultrasound of both kidneys performed using standard protocol. COMPARISON: CT CT ABDOMEN PELVIS W from 09/05/2022 FINDINGS: RIGHT KIDNEY: Measures 12 cm in length. No cysts evident. Normal cortical thickness and corticomedullary differenti ation .No solid masses there is mild hydronephrosis of the right kidney. No obvious intrarenal calcu li. LEFT KIDNEY: Measures 13 cm in length. No cysts evident. Normal cortical thickness and corticomedullary different iaion. No solids masses. No intrarenal calculi nor hydonephrosis. URINARY BLADDER: Prevoid volume is 381 cc Postvoid volume is 14 cc No evidence of bladder mass nor diverticuli. Ureterovesical jets: Left UV jet was identified. Right was not. IMPRESSION: 1. There is mild hydronephrosis of the right kidney and there is lack of visualization of the right ureterovesical jet within the urinary bladder. Suspect right ureter obstruction. I note that unilat eral hydronephrosis of the right kidney was also evident on prior CT scan of 1 year ago (09/05/2022) DATA REPOSITORY:
[2023-08-24 12:47] LABS: HCT 30.4 % (36.0-46.0); HGB 10.6 g/dL (11.2-15.7); MCHC 34.9 % (32.0-36.0); MCV 89 fL (80-95); MPV 8.7 fL (8.0-11.0); Platelet Count 191 10^3/uL (130-400); RBC 3.42 10^6/uL (3.93-5.22); RDW 14.4 % (11.7-14.6); RDW-SD 44.7 fL; WBC 4.56 10^3/uL (4.4-10.8)
[2023-08-24 13:02] LABS: ALT 26 U/L (14-59); AST 22 U/L (15-37); Albumin 3.8 g/dL (3.4-5.0); Alkaline Phosphatase 66 U/L (46-116); Anion Gap 9.1 mmol/L (3-11); BUN 13 mg/dL (7-18); Bilirubin, Total 0.45 mg/dL (0.2-1.0); CO2 26.9 mmol/L (21.0-32.0); CREATININE 0.8 mg/dL (0.55-1.02); Calcium 8.6 mg/dL (8.5-10.1); Chloride 103 mmol/L (98-107); Estimated GFR 76.31 (mL/min/1.73m2); Glucose 127 mg/dL (74-106); Potassium 3.7 mmol/L (3.5-5.1); Sodium 139 mmol/L (136-145); Total Protein 7.5 g/dL (6.4-8.2)
[2023-08-24 13:49] LABS: Absolute Neutrophil Count 2.46 10^3/uL (1.2-6.7)
[2023-08-24 13:50] LABS: Absolute Lymphocyte Count 1.87 10^3/uL (1.2-3.4); Absolute Monocyte Count 0.23 10^3/uL (0.1-0.8); Atypical Lymphocytes % 0 %; Bands % 0 %; Diff Comment Manual Differential; Metamyelocytes % 0; Myelocytes % 0; Other Cells % 0; Promyelocytes % 0; RBC Morphology Normal
== END ==
PROVIDERS: PCP Family Medicine; Visit Provider Physician Assistant
DX: R10.31 Right lower quadrant pain (principal); N13.30 Unspecified hydronephrosis
CPT/HCPCS: 36415; 76770; 80053; 85025

== ENCOUNTER 2023-08-24 18:44 | Outpatient (REF) | payer MEDICARE, SELFPAY | END 2023-08-24 18:45 | disposition home or self-care (01) | LOC: LBN 18:44 | PROVIDERS: PCP Family Medicine; Visit Provider Physician Assistant | DX: N39.0 Urinary tract infection, site not specified (principal) | CPT/HCPCS: 87086 ==

== ENCOUNTER → 2023-08-30 00:49 | Outpatient (CLI) | payer MEDICARE, SELFPAY ==
--- NOTE | 2023-08-30 07:00 | DI.NM_ITS ---
Exam(s) NM MAG 3 RENOGRAM W LASIX CLINICAL HISTORY: ? 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 COMPARISON: CT CT ABDOMEN PELVIS W from 09/05/2022 EXAMINATION: Dose: 9.5 mCi Tc-99m MAG3 Images: Immediately for 1 minute followed by dynamic for 45 minutes. Sixteenmg Lasix was administered after peak uptake in the right renal cortex at approximately 12 min. FINDINGS: Time to peak: Right: 4 min (< 5 min normal) Left: 13 min (< 5 min normall) Split renal function: Right: 37.3 % Left: 62.7 % Time activity curve for the left kidney appears unremarkable. No evidence of obstruction on the left side. On the right side the time activity curve slope reveals an element of obstruction which exhibits sign ificant change of the slope upon injection of 16 milligrams furosemide/Lasix, rapidly changing to a s teep excretion-type slope following diuretic injection. Right kidney wire shadow is complete by 20 m inutes. IMPRESSION: Normal left kidney excretion curve Findings in the right kidney on this nuclear study + CT scan of 09/05/2022 are in keeping with an dax ment of ureteropelvic junction obstruction which exhibits significant improvement following Lasix inj ection with washout completed by 20 minutes. 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 I note that on the recent CT scan of 09/05/2022 there is a size difference in the kidneys, with nonob structed left kidney measuring approximately 11.8 cm craniocaudal length and the right kidney measuri ng approximately 9.8 cm length. In addition, there does appear to be an element of mild-moderate rel atively uniform cortical thinning on the right side
[2023-08-30] MEDS: Furosemide 40 MG/4 ML VIAL 16 MG IVP (10:40)
== END ==
PROVIDERS: PCP Family Medicine; Visit Provider Physician Assistant
DX: N36.8 Other specified disorders of urethra (principal)
CPT/HCPCS: 78708; A9540; J1940

== ENCOUNTER 2023-10-17 01:17 | Outpatient (CLI) | payer MEDICARE, SELFPAY ==
--- NOTE | 2023-10-17 07:30 | DI.RAD_ITS ---
Exam(s) XR KNEE LT 3V AP,LAT,XU EXAM: XR KNEE LT 3V AP,LAT,XU CLINICAL HISTORY: fall w/ left knee/tibia pain,M25.562. TECHNIQUE: 2D digital imaging was performed. Three views. COMPARISON: CR XR KNEE LT 3V AP,LAT,XU from 06/14/2021 FINDINGS: BONES: No acute fracture is present. No bony destructive lesion is seen. JOINTS: The knee is normally aligned. No joint effusion is seen. Narrowing of the patellofemoral ancelmo int space is noted. Femoral tibial joint spaces are maintained. Mild periarticular spurring. SOFT TISSUE: Normal. IMPRESSION: Degenerative changes of the patellofemoral joint. DATA REPOSITORY: RADIATION DOSE DELIVERED:
== END 2023-10-17 01:37 ==
LOC: DI 01:17
PROVIDERS: PCP Family Medicine; Visit Provider Family Medicine
DX: M25.562 Pain in left knee (principal)
CPT/HCPCS: 73562

== ENCOUNTER → 2023-10-23 08:56 | Outpatient (BNVA) | payer MEDICARE, SELFPAY | PROVIDERS: PCP Family Medicine; Referring Provider Family Medicine; Visit Provider Nurse Practitioner Gerontology | DX: N13.30 Unspecified hydronephrosis (principal) | CPT/HCPCS: 99205 ==

== ENCOUNTER → 2025-01-06 03:52 | Outpatient (CLI) | payer MEDICARE, SELFPAY ==
--- NOTE | 2025-01-06 12:40 | DI.RAD_ITS ---
Exam(s) XR SHOULDER RT COMPLETE 2+V EXAM: XR SHOULDER RT COMPLETE 2+V CLINICAL HISTORY: rt shoulder pain after fall,m25.511,[id number]. TECHNIQUE: 2D digital imaging was performed. COMPARISON: CR LEFT SHOULDER COMPLETE from 08/15/2013 FINDINGS: Four views No evidence of fracture nor dislocation. Subacromial space is lower normal height. There are moderate degenerative changes in the glenohumeral joint a small osteophyte on the inferior articular surface of the humeral head noted. Mild degenerative changes in the AC joint. On the axial view there is a small calcific density seen anteriorly adjacent to the anterior aspect of the humeral neck. This may be within the biceps tendon sheath. IMPRESSION: Mild-moderate degenerative changes in the glenohumeral joint. Solitary oval 3 mm calcification anteriorly seen on the axial view. Suspect that this may be a loose body within the biceps tendon sheath. No significant osseous lesions. DATA REPOSITORY: RADIATION DOSE DELIVERED:
== END ==
LOC: DI 03:52
PROVIDERS: PCP Family Medicine; Visit Provider Family Medicine
DX: M25.511 Pain in right shoulder (principal); W19.XXXA Unspecified fall, initial encounter
CPT/HCPCS: 73030